=== PATIENT | male | born 1975 | race Asian ===

== ENCOUNTER → 2022-11-01 08:55 | Outpatient (CLI) | payer OTHER, SELFPAY ==
--- NOTE | 2022-11-01 | DI.MRI.S_ITS ---
PROCEDURE: MR KNEE RT WO CON INDICATIONS: Tear of medial meniscus, current injury,right knee TECHNIQUE: Noncontrast sagittal PD fast spin echo and T2 fast spin echo with fat saturation, sagittal 3-D FLASH with fat saturation; coronal T1 spin echo and PD fast spin echo with fat saturation, and axial PD fast spin echo with fat saturation through the knee. COMPARISON: None. FINDINGS: Image quality: Good Menisci: Medial: Oblique tear of the posterior horn of the medial meniscus, extending to the peripheral body. There is involvement of the meniscal capsular junction. Lateral: No discrete tear. Meniscal popliteal fascicles are intact. Cruciate ligaments: Intact Medial structures: MCL: Intact Pes anserine tendons: Intact Semimembranosus: Mild to moderate insertional tendinopathy. Lateral structures: LCL: Intact Biceps femoris: Intact IT band: Intact Popliteus tendon: Intact Anterior structures: Extensor mechanism: Intact Fat pads: Mild edema in Hoffa's fat pad. Medial retinaculum: Intact. Trochlea: Unremarkable morphology. Bone and joint: Bones: No fracture, dislocation, or suspicious edema Cartilage: Multifocal fissuring of the median ridge of the patella, with underlying edema. There is also partial cartilage loss in the femoral trochlea articulating surface. Lateral compartment cartilage is relatively preserved. Nkqf-nu-fcdeioyb chondromalacia is seen in the medial compartment. Minimal edema is seen in the peripheral aspect of the medial tibial plateau, underlying the meniscal tear. Mild tricompartmental osteophyte formation. Joint space: Pbqc-dz-hluwqbra knee joint effusion. Cordero's cyst: Moderate Cordero's cyst, with mild leakage Soft tissues: No significant vascular or other soft tissue pathology. IMPRESSION: Oblique medial meniscal tear involving the posterior horn, extending to the periphery of the body. Mibj-ri-yabbwici medial compartment chondromalacia with mild focal edema in the periphery of the medial tibial plateau. Partial-thickness cartilage loss in the femoral trochlea articulating surface. Multifocal full-thickness fissuring with underlying marrow edema of the patellar median ridge. Tndl-xi-imlognwa joint effusion. Cordero's cyst, with some leakage. Mild edema in Hoffa's fat pad. Cruciate ligaments are intact. Csca-cb-yjwbzbsj semimembranosus insertional tendinosis. Dictated by: Miguel Packer M.D. on 11/01/2022 at 10:18 Approved by: Miguel Packer M.D. on 11/01/2022 at 10:24
== END ==
PROVIDERS: Referring Provider Orthopaedic Surgery; Visit Provider Orthopaedic Surgery
DX: S83.241A Other tear of medial meniscus, current injury, right knee, initial encounter (principal); M94.261 Chondromalacia, right knee; M25.461 Effusion, right knee; M66.0 Rupture of popliteal cyst
CPT/HCPCS: 73721

== ENCOUNTER 2023-06-16 01:12 | Emergency (ER) | payer OTHER, SELFPAY ==
[2023-06-16] VITALS (7 sets, daily range): BP systolic 146–180; BP diastolic 89–106; PULSE 73–103; RESP 13–26; TEMP 36.8; O2SAT 98–100; BMI 24.3
--- NOTE | 2023-06-16 01:21 | DI.CT.S_ITS ---
PROCEDURE: CT KIDNEY URETER BLADDER (KUB) INDICATIONS: Left flank pain; LLQ abdominal pain. TECHNIQUE: Axial sections were acquired from the lung bases to the pubic symphysis. Coronal and sagittal reformats were performed. For radiation dose reduction, the following was used: automated exposure control, adjustment of mA and/or kV according to patient size. COMPARISON: None. FINDINGS: Image quality: Excellent. Lung bases: There is minimal atelectasis. Heart: Heart is normal in size. URINARY: Right Kidney and Ureter: No stones or hydronephrosis. No hydroureter. Left Kidney and Ureter: There is a small 0.2 cm stone at the left ureterovesicular junction with mild left hydroureteronephrosis. There is associated mild perinephric and periureteral fat stranding. Bladder: Normal wall thickness. No stones. ABDOMEN: Liver: Noncontrast evaluation of the liver demonstrates no discrete mass. Gallbladder: Within normal limits without calcified gallstones. Biliary ducts: No biliary ductal dilatation. Pancreas: Unremarkable. Spleen: Normal in size. Adrenal Glands: No adrenal nodules. Stomach and Bowel: Stomach, small bowel loops, and colon are normal in caliber and wall thickness. The appendix is normal. Peritoneum: No abnormal intraperitoneal fluid. No free air. Ventral Wall: No hernia. Abdominal Nodes: No retroperitoneal or mesenteric adenopathy by size criteria. Vessels: Aorta and inferior vena cava are normal in size. PELVIS: Pelvic Organs: Unremarkable. Pelvic Nodes: No enlarged lymph nodes. Miscellaneous: No inguinal hernias identified. Bones: Visualized osseous structures demonstrate no suspicious focal lesions. IMPRESSION: 1. Small obstructing stone at the left UVJ with mild left hydroureteronephrosis. Dictated by: Alexi Guidry M.D. on 06/16/2023 at 2:22 Approved by: Alexi Guidry M.D. on 06/16/2023 at 2:25
[2023-06-16] MEDS: KETOROLAC 30 MG/ML VIAL IV (01:27)
[2023-06-16] MEDS: ONDANSETRON 4 MG/2 ML INJ IV (01:27)
[2023-06-16 01:37] LABS: Add Manual Diff / Slide Review NO; Basophils Absolute Auto 100 /uL (0-100); Basophils Percent Auto 0.6 % (0-2); Eosinophils Absolute Auto 100 /uL (0-450); Eosinophils Percent Auto 0.5 % (2-4); Hematocrit 40.5 % (41-53); Hemoglobin 14.3 g/dL (13.5-17.5); Lymphocytes Absolute Auto 4700 /uL (1100-4500); Mean Corpuscular HGB Conc 35.2 % (30-36); Mean Corpuscular Hemoglobin 29.1 PG (26-34); Mean Corpuscular Volume 82.5 fL (80-100); Monocytes Absolute Auto 800 /uL (0-900); Monocytes Percent Auto 6.5 % (3-14); Neutrophils Absolute Auto 5900 /uL (1500-7000); Neutrophils Percent Auto 51.4 % (50-75); Platelet Count 216 X10^3/uL (150-400); Red Blood Cell Count 4.91 X10^6/uL (4.5-5.9); Red Cell Distribution Width 13.1 % (11.6-14.8); White Blood Cell Count 11.6 X10^3/uL (4.5-11.0)
[2023-06-16 01:44] LABS: Alanine Aminotransferase 21 IU/L (<50); Albumin 4.4 g/dL (3.5-5.0); Albumin Globulin Ratio 1.3 (1.0-2.8); Alkaline Phosphatase 66 U/L (38-126); Aspartate Aminotransferase 37 IU/L (17-59); BUN Creatinine Ratio 15.7 (6-22); Bilirubin Total 0.9 mg/dL (0.2-1.3); Blood Urea Nitrogen 18 mg/dL (9-20); Calcium 9.4 mg/dL (8.4-10.2); Carbon Dioxide 24 mmol/L (22-32); Chloride 103 mmol/L (98-107); Estimated Glomerular Filt Rate > 60 mL/min (>60); Globulin 3.3 g/dL (1.7-4.1); Glucose 129 mg/dL (70-100); HEMOLYSIS < 15 (0-50); Lipase 105 U/L (23-300); Potassium 3.2 mmol/L (3.4-5.1); Sodium 137 mmol/L (137-145); Total Protein 7.7 g/dL (6.3-8.2)
[2023-06-16] MEDS: HYDROMORPHONE 0.5 MG INJ IV (02:00)
--- NOTE | 2023-06-16 02:27 | ED_ITS ---
HPI - Abdominal Pain General Chief Complaint: Abdominal Pain Stated Complaint: LOWER LEFT ABD PAIN CRAMPING PAINFUL Time Seen by Provider: 06/16/23 01:17 Source: patient and family Mode of arrival: Ambulatory History of Present Illness HPI narrative: Patient is a 47-year-old male without significant past medical history presenting today with sudden onset of left lower quadrant pain. This started around 930 thought it was gas he took some home medicines. However he continues to have pain. Seems to come and go in waves. No nausea or vomiting. He is quite uncomfortable on the gurney. Unable to find any sort of comfortable position. Related Data Previous Rx's Medication Instructions Recorded hydrocodone 5 mg-acetaminophen 325 1 tab PO Q6H PRN pain #14 tabs 06/16/23 mg tablet ondansetron 4 mg disintegrating 4 mg PO Q8H PRN nausea and 06/16/23 tablet vomiting #10 tabs Allergies Allergy/AdvReac Type Severity Reaction Status Date / Time No Known Drug Allergies Allergy Verified 06/16/23 01:21 Review of Systems Review of Systems ROS Unobtainable: All systems reviewed & are unremarkable except as noted in HPI and below Patient History Social History Smoking Status: Never smoker Smoking Status: Never smoker Substance Use Type: does not use Exam Initial Vital Signs Initial Vital Signs: Vital Signs Temperature 98.2 F 06/16/23 01:21 Pulse Rate 103 H 06/16/23 01:21 Respiratory Rate 26 H 06/16/23 01:21 Blood Pressure 170/90 H 06/16/23 01:21 Pulse Oximetry 98 06/16/23 01:21 Oxygen Delivery Method Room Air 06/16/23 01:21 GENERAL: 47-year-old male very uncomfortable and in no acute distress. HEENT: Head atraumatic,EOMI, pupils reactive CARDIOVASCULAR: Regular rate and rhythm without murmurs, rubs or gallops. RESPIRATORY: Breath sounds equal bilaterally, no wheezes rales or rhonchi. ABDOMEN: Soft, mild left lower quadrant pain no guarding no rebound : Left CVA tenderness EXTREMITIES: Normal range of motion, no clubbing or edema. Neurovascularly intact NEUROLOGICAL: Alert and oriented x4. SKIN: Warm, dry, no laceration, no petechiae, no rashes or lesions. Course Orders Ordered: ED Orders 06/16/23 01:21 CT kidney ureter bladder (KUB) Stat 06/16/23 01:25 Complete Blood Count AUTO DIFF Stat Comprehensive Metabolic Panel Stat Lipase Stat Discontinued Medications Hydrocodone Bitart/Acetaminophen (Hydrocodone/Acet 5/325 Prepack) 1 bottle MISC SEEINSTR ONE Stop: 06/16/23 02:59 Last Admin: 06/16/23 03:18 Dose: 1 bottle Documented By: MOLLY Hydromorphone HCl (Hydromorphone 0.5 Mg Inj) 0.5 mg IV NOW ONE Stop: 06/16/23 01:54 Last Admin: 06/16/23 02:00 Dose: 0.5 mg Documented By: ALOK Ketorolac Tromethamine (Ketorolac 30 Mg/Ml Vial) 30 mg IV NOW ONE Stop: 06/16/23 01:22 Last Admin: 06/16/23 01:27 Dose: 30 mg Documented By: MOLLY Ondansetron HCl (Ondansetron 4 Mg/2 Ml Inj) 4 mg IV NOW ONE Stop: 06/16/23 01:22 Last Admin: 06/16/23 01:27 Dose: 4 mg Documented By: MOLLY Vital Signs Vital signs: Vital Signs - 8 hr 06/16/23 01:21 06/16/23 01:21 06/16/23 01:30 Temperature 98.2 F Pulse Rate 103 H 100 H 99 H Respiratory Rate 26 H Blood Pressure 170/90 H Pulse Oximetry 98 100 100 Oxygen Delivery Method Room Air 06/16/23 01:42 06/16/23 01:42 06/16/23 01:53 Temperature Pulse Rate 93 H Respiratory Rate Blood Pressure 161/97 H 180/106 H Pulse Oximetry 100 Oxygen Delivery Method 06/16/23 01:53 06/16/23 02:00 06/16/23 02:00 Temperature Pulse Rate 97 H 94 H Respiratory Rate 15 26 H Blood Pressure 171/102 H Pulse Oximetry 99 100 Oxygen Delivery Method 06/16/23 02:30 06/16/23 02:30 06/16/23 03:00 Temperature Pulse Rate 76 Respiratory Rate 13 Blood Pressure 149/89 H 146/93 H Pulse Oximetry 100 Oxygen Delivery Method 06/16/23 03:00 Temperature Pulse Rate 73 Respiratory Rate 14 Blood Pressure Pulse Oximetry 100 Oxygen Delivery Method MDM - Abdominal Pain Lab Data 06/16/23 01:25 06/16/23 01:25 Labs: Lab Results 06/16/23 06/16/23 Range/Units 01:25 01:25 WBC 11.6 H (4.5-11.0) X10^3/uL RBC 4.91 (4.5-5.9) X10^6/uL Hgb 14.3 (13.5-17.5) g/dL Hct 40.5 L (41-53) % MCV 82.5 (80-100) fL MCH 29.1 (26-34) PG MCHC 35.2 (30-36) % RDW 13.1 (11.6-14.8) % Plt Count 216 (150-400) X10^3/uL Neut % (Auto) 51.4 (50-75) % Lymph % (Auto) 41.0 H (25-40) % [place] % (Auto) 6.5 (3-14) % Eos % (Auto) 0.5 L (2-4) % Baso % (Auto) 0.6 (0-2) % Neut # (Auto) 5900 (4291-5133) /uL Lymph # (Auto) 4700 H (2162-7960) /uL [place] # (Auto) 800 (0-900) /uL Eos # (Auto) 100 (0-450) /uL Baso # (Auto) 100 (0-100) /uL Sodium 137 (137-145) mmol/L Potassium 3.2 L (3.4-5.1) mmol/L Chloride 103 (98-107) mmol/L Carbon Dioxide 24 (22-32) mmol/L BUN 18 (9-20) mg/dL Creatinine 1.15 (0.66-1.25) mg/dL Estimated GFR > 60 (>60) mL/min BUN/Creatinine Ratio 15.7 (6-22) Glucose 129 H (70-100) mg/dL Calcium 9.4 (8.4-10.2) mg/dL Total Bilirubin 0.9 (0.2-1.3) mg/dL AST 37 (17-59) IU/L ALT 21 (<50) IU/L Alkaline Phosphatase 66 (38-126) U/L Total Protein 7.7 (6.3-8.2) g/dL Albumin 4.4 (3.5-5.0) g/dL Globulin 3.3 (1.7-4.1) g/dL Albumin/Globulin Ratio 1.3 (1.0-2.8) Lipase 105 (23-300) U/L Point of care testing: Urine Dip Bedside Urine Glucose Negative Bedside Urine Bilirubin - Negative Bedside Urine Ketone +/- 5 Urine Specific [place] 1.010 Bedside Urine Occult Blood +++ Bedside Urine pH 7.0 Bedside Urine Protein +/- 15 Bedside Urine Urobilinogen - Negative Bedside Urine Nitrite - Negative Bedside Urine Leukocytes - Negative Esterase Imaging Data CT scan - abdomen/pelvis: Radiologist's Impression: PROCEDURE: CT KIDNEY URETER BLADDER (KUB) INDICATIONS: Left flank pain; LLQ abdominal pain. TECHNIQUE: Axial sections were acquired from the lung bases to the pubic symphysis. Coronal and sagittal reformats were performed. For radiation dose reduction, the following was used: automated exposure control, adjustment of mA and/or kV according to patient size. COMPARISON: None. FINDINGS: Image quality: Excellent. Lung bases: There is minimal atelectasis. Heart: Heart is normal in size. URINARY: Right Kidney and Ureter: No stones or hydronephrosis. No hydroureter. Left Kidney and Ureter: There is a small 0.2 cm stone at the left ureterovesicular junction with mild left hydroureteronephrosis. There is associated mild perinephric and periureteral fat stranding. Bladder: Normal wall thickness. No stones. ABDOMEN: Liver: Noncontrast evaluation of the liver demonstrates no discrete mass. Gallbladder: Within normal limits without calcified gallstones. Biliary ducts: No biliary ductal dilatation. Pancreas: Unremarkable. Spleen: Normal in size. Adrenal Glands: No adrenal nodules. Stomach and Bowel: Stomach, small bowel loops, and colon are normal in caliber and wall thickness. The appendix is normal. Peritoneum: No abnormal intraperitoneal fluid. No free air. Ventral Wall: No hernia. Abdominal Nodes: No retroperitoneal or mesenteric adenopathy by size criteria. Vessels: Aorta and inferior vena cava are normal in size. PELVIS: Pelvic Organs: Unremarkable. Pelvic Nodes: No enlarged lymph nodes. Miscellaneous: No inguinal hernias identified. Bones: Visualized osseous structures demonstrate no suspicious focal lesions. IMPRESSION: 1. Small obstructing stone at the left UVJ with mild left hydroureteronephrosis. Dictated by: Alexi Guidry M.D. on 06/16/2023 at 2:22 MDM Narrative Medical decision making narrative: Patient 47-year-old male without significant past medical history presenting with sudden onset left flank pain writhing in pain in the ED presenting similar to a kidney stone. CT confirms a 2 mm stone without significant hydronephrosis. Renal function is stable. No evidence of UTI. Pain is much better Toradol and Dilaudid. Discussion about pain management at home and when to return to ED. Discharge Plan Departure Patient Disposition: Home Clinical Impression: Calculus of kidney Instructions: DI for Kidney Stones Activity Restrictions/Additional Instructions: *You have been diagnosed with kidney stone *What to do: You have a left-sided kidney stone. You should pass as hopefully within 24-48 hours. Please stay hydrated. May resume activity as tolerated as long as pain is tolerated *Continue to take medications as directed--> [facility] anaortes Motrin 600 mg every 6 hours if needed for lnta-cp-eplqakoh pain [place] 1-2 tablets every 6 hours if needed for severe Zofran 4 mg every 8 hours if needed for nausea or vomiting *Follow up with your primary care provider in 2-3 days or call [phone] *Return to ER if you should have increasing pain persistent vomiting fever worsening flank pain or any new, worsening or concerning symptoms CONTROLLED SUBSTANCE DISCHARGE (Narcotoic/benzodiazepine/Flexeril/Phenergan) 1. You have been prescribed narcotic medications, it does have acetaminophen/Tylenol/paracetamol in it, DO NOT TAKE MORE THAN 4,00mg in 24 deonte rs of Tylenol. TRAMADOL DOES NOT CONTAIN TYLENOL 2. Please understand that we cannot provide further refills of narcotics, benzodiazepines or controlled substances through the ED and her pain management will need to be through your provider. 3. While on these medications you cannot drive or operate heavy machinery. 4. You cannot sign legal documents or perform any duties such as this. 5. As long as you're taking opiate pain medications he should also be taking a stool softener such as Colace, Dulcolax, MiraLAX or prune juice, to help avoid constipation. Prescriptions: New hydrocodone-acetaminophen 5-325 mg tablet 1 tab PO Q6H PRN (Reason: pain) Qty: 14 0RF ondansetron 4 mg tablet,disintegrating 4 mg PO Q8H PRN (Reason: nausea and vomiting) Qty: 10 0RF Stand Alone Forms: Patient Portal/API
[2023-06-16] MEDS: HYDROCODONE/ACET 5/325 PREPACK 1 BOTTLE MISC (03:18)
== END 2023-06-16 03:28 | disposition home or self-care (01) ==
PROVIDERS: Emergency Provider Emergency Medicine
DX: N20.0 Calculus of kidney (principal)
CPT/HCPCS: 36415; 74176; 80053; 81003; 83690; 85025; 96374; 96375; 99284; J1170; J1885; J2405

== ENCOUNTER 2024-09-19 08:40 | Day surgery (SDC) | payer OTHER, SELFPAY ==
[2024-09-09 12:10] VITALS: BMI 25.4
[2024-09-19] VITALS (8 sets, daily range): BP systolic 119–142; BP diastolic 60–95; PULSE 72–91; RESP 12–17; TEMP 36.1–36.4; O2SAT 94–100; BMI 24.3
[2024-09-19] MEDS: LACTATED RINGERS 1,000 ML 42 ML IV (09:04)
[2024-09-19] MEDS: ACETAMINOPHEN 325 MG TABLET 975 MG PO (09:06)
--- NOTE | 2024-09-19 09:39 | PM.PREOP ---
Pre-operative Note Interval Note History & Physical reviewed/Exam performed by Physician: Yes Changes to H&P: No
--- NOTE | 2024-09-19 09:40 | PM.OP.1 ---
Operative Date/Time/Diagnoses Date of procedure: 09/19/24 Time of procedure: 09:40 Pre-op diagnosis: Right and left fifth toe pain, nail dystrophy, hammertoes Post-op diagnosis: same Procedure & Clinicians Procedure: 1. Right fifth toe amputation 2. Left fifth toe amputation Same procedure as scheduled: Yes Indications: 49-year-old male with ongoing pain to both 5th toes. Conservative measures have failed to alleviate this pain and he wished to have surgical intervention at this time. We spoke the risks and potential complications as well as expected outcomes, and alternatives. Consent was signed and there were no contraindications to the procedures at this time. Surgeon: Cathy Lacy Click Yes if Unassisted: Yes Anesthesia Type: General Operative Notes Closure Type: primary Specimen(s): none sent Estimated Blood Loss (mL): 20 Blood products transfused: none Procedure in detail: The patient was brought to the operating room and placed on the operating table in the supine position. Tourniquet was placed about the left ankle. Well padded, appropriately aligned. After induction of general anesthesia the foot and ankle were prepped and draped in the usual aseptic manner. Using the recorded injectables, anesthesia was performed to the left 5th metatarsophalangeal joint. The tourniquet was inflated around the left ankle. After a check of anesthesia, a full-thickness circumferential incision was made around the 5th toe. This was then continued into the metatarsophalangeal joint linearly. The toe was carefully disarticulated and removed from the field. Remaining free tendon edges were reduced. The area was irrigated with copious amounts of normal sterile saline. Skin and tissue was revised to allow for appropriate closure. Vessels were cauterized and ligated as necessary. 4-0 Vicryl was used subcutaneously for closure and 3-0 nylon for the skin. The same procedure was performed to the right foot. Tourniquet time for the right foot was 5 minutes and left foot 7 minutes. The area on both feet was dressed with a sterile lightly compressive dressing. Complications: none Post-operative Condition: stable Disposition: PACU Plan for aftercare: Following a period of postoperative monitoring, the patient will be discharged to home on written and oral postoperative instructions including keeping the dressings dry and intact, very limited weight to the feet using crutches and he has his postoperative shoes, icing and elevating the feet when seated home. DVT prevention techniques have been reviewed. For the 1st postoperative visit the dressing will be changed and close to the 3rd postoperative week we will likely remove the sutures.
[2024-09-19] MEDS: CEFAZOLIN 2 GM/100 ML PREMIX 100 ML IV (09:49)
[2024-09-19] MEDS: BUPIVACAINE 0.5% (PF) 30 ML VIAL INJ (10:04)
--- NOTE | 2024-09-19 10:09 | SUR.OPER ---
NO SPECIMEN PER SURGEON.
== END 2024-09-19 12:08 | disposition home or self-care (01) ==
PROVIDERS: Referring Provider Podiatrist; Visit Provider Podiatrist
PROC: (CPT 28820; principal; 2024-09-19 10:15)
DX: M20.42 Other hammer toe(s) (acquired), left foot (principal); M20.41 Other hammer toe(s) (acquired), right foot; M20.5X1 Other deformities of toe(s) (acquired), right foot; L60.3 Nail dystrophy; M79.674 Pain in right toe(s); M79.675 Pain in left toe(s)
CPT/HCPCS: 28820 ×2; J0690; J2250; J2405; J2704; J3010

== ENCOUNTER → 2024-10-20 10:56 | Outpatient (CLI) | payer OTHER, SELFPAY ==
--- NOTE | 2024-10-20 11:01 | DI.MRI.S_ITS ---
PROCEDURE: MR CERVICAL SPINE WO CON INDICATIONS: cervical radiculopathy TECHNIQUE: Noncontrast sagittal T1 spin echo and T2 fast spin echo, sagittal STIR, foraminal oblique sagittal T2 fast spin echo, and axial gradient echo or T2 fast spin echo through the cervical spine. COMPARISON: None. FINDINGS: Image quality: Excellent. Alignment and Curvature: Straightening of the normal cervical lordosis peer Bone Marrow: Marrow demonstrates normal overall signal. Spinal Cord: Visualized spinal cord has normal size and signal. No cerebellar tonsillar herniation. Paraspinous Soft Tissues: No paravertebral masses. Prevertebral soft tissues are normal in thickness. C2-C3: No central canal or neural foraminal stenosis. C3-C4: Minimal posterior disc osteophyte complex. No central canal or neural foraminal stenosis. C4-C5: Disc desiccation and mild posterior disc osteophyte complex. Mild central canal stenosis. Facet uncovertebral arthropathy. Mild bilateral neural foraminal stenosis. C5-C6: Disc desiccation and posterior disc osteophyte complex with partial effacement of the CSF space. Facet and uncovertebral arthropathy. Moderate central canal stenosis. Moderate bilateral neural foraminal stenosis. C6-C7: Disc desiccation and minimal posterior disc osteophyte complex. Mild central canal stenosis. Facet uncovertebral arthropathy. Moderate bilateral neural foraminal stenosis. C7-T1: No significant central canal or neural foraminal stenosis. IMPRESSION: 1. Multilevel degenerative changes of the cervical spine as described above. 2. Moderate central canal stenosis at C5-C6. Mild central canal stenosis at C4-C5 and C6-C7. 3. Moderate bilateral neural foraminal stenosis at C5-C6 and C6-C7. Dictated by: Matthew Bethea M.D. on 10/20/2024 at 17:44 Approved by: Matthew Bethea M.D. on 10/20/2024 at 17:53
== END ==
PROVIDERS: Referring Provider Internal Medicine; Visit Provider Internal Medicine
DX: M47.22 Other spondylosis with radiculopathy, cervical region (principal); M48.02 Spinal stenosis, cervical region
CPT/HCPCS: 72141